=== PATIENT | female | born 1985 | race Native Hawaiian/Other Pacific Islander ===

== ENCOUNTER 2016-08-02 18:31 | Inpatient (IN) | payer OTHER ==
[~2016-08-02] VITALS: Ht 170.2 cm; Wt 98.0 kg
[2016-08-02] MEDS ORDERED: ACET50TA PO (18:37)
[2016-08-02 18:42] VITALS: BP 144/85
[2016-08-02] MEDS ORDERED: PENICILLIN G POTASSIUM IV 5 MU in D5W MINI-BAG PLUS 100 ML IV STA (19:05)
[2016-08-02] MEDS ORDERED: PENICILLIN G POTASSIUM 5 MU VIAL As Ordered ONE (19:10)
[2016-08-02] MEDS ORDERED: BETAMETHASONE SOLUSPAN 6MG/ML INJ 5ML (J0702) IM SCH (19:15)
[2016-08-02] MEDS: miSOPROStol 50 MCG 1/2 TAB (S0191) PO SCH ×2 (19:52→23:47)
[2016-08-02 19:56] LABS: MEAN CORPUSCULAR HEMOGLOBIN 25.5 pg (27.0-33.0); MEAN CORPUSCULAR HGB CONC 33.4 g/dl (32.0-36.5); MEAN CORPUSCULAR VOLUME 76.4 fl (80.0-96.0); RED CELL DISTRIBUTION WIDTH 14.6 % (11.5-14.5); WHITE BLOOD COUNT 8.3 K/mm3 (4.0-10.0)
[2016-08-02 20:17] LABS: ALT/SGPT 13 U/L (12-78); AST/SGOT 8 U/L (15-37); BILIRUBIN,TOTAL 0.3 MG/DL (0.2-1.0); CREATININE FOR GFR 0.58 MG/DL (0.55-1.02); GLOMERULAR FILTRATION RATE > 60.0 (>60); URIC ACID 3.1 MG/DL (2.6-6.0)
[2016-08-02 21:17] VITALS: BP 135/86
[2016-08-02] MEDS ORDERED: PENICILLIN G POTASSIUM IV 2.5 MU in D5W 100 ML IV SCH (23:45)
[2016-08-03] VITALS (8 sets, daily range): BP systolic 116–150; BP diastolic 67–95
[2016-08-03] MEDS ORDERED: FENTANYL 2MCG/ML ROPIVACAINE 0.2% NACL 250 ML CADD As Ordered ONE (01:17)
[2016-08-03] MEDS ORDERED: NALOXONE INJ 0.4 MG/1 ML VIAL (J2310) IV PRN (01:30)
[2016-08-03] MEDS ORDERED: LACTATED RINGER'S 1000 ML IV PRN (01:30)
[2016-08-03] MEDS ORDERED: diphenhydrAMINE INJ 50MG/ML VIAL (J1200) IV PRN (01:30)
[2016-08-03] MEDS ORDERED: ONDANSETRON 4MG/2ML VIAL (J2405) IV PRN (01:30)
[2016-08-03] MEDS ORDERED: ePHEDrine SULFATE 25 MG/5 ML(5MG/ML) SYRINGE IV PRN (01:30)
[2016-08-03] MEDS ORDERED: EPIDURAL COMMENT XX SCH (01:30)
[2016-08-03] MEDS ORDERED: EPIDURAL/PCA KEYS XX PRN (01:30)
[2016-08-03] MEDS ORDERED: FENTANYL/ROPIVACAINE/NACL CADD 250 ML EPIDURAL SCH (01:30)
[2016-08-03] MEDS ORDERED: REFRIGERATOR IV KEYS XX PRN (01:30)
[2016-08-03] MEDS ORDERED: OXYTOCIN 30 UNITS IN 0.9% NaCl 500ML IV BAG (J2590) As Ordered ONE (02:08)
[2016-08-03] MEDS ORDERED: OXYTOCIN DRIP 30 UNITS in APPROPRIATE DILUENT 1 EA IV SCH (02:28)
[2016-08-03] MEDS ORDERED: RHOGAM 300 MCG (1500 IU) INJ (J2790) IM SCH (02:30)
[2016-08-03] MEDS ORDERED: METHYLERGONOVINE MALEATE 0.2 MG TAB PO PRN (02:30)
[2016-08-03] MEDS ORDERED: DIBUCAINE 1% OINTMENT 30GM TOP PRN (02:30)
[2016-08-03] MEDS ORDERED: ANUSOL HC CREAM 30GM TOP PRN (02:30)
[2016-08-03] MEDS ORDERED: MEASLES,MUMPS,RUBELLA VACCINE INJ (MMR-II) (90707) SC SCH (02:30)
[2016-08-03] MEDS: IBUPROFEN 800 MG TAB PO PRN ×2 (03:59→15:06)
--- NOTE | 2016-08-03 07:57 | HPE ---
DATE OF ADMISSION: 08/02/2016 Antonieta is a 31-year-old 2, para 1-0-0-1 at 35-2/7 weeks gestation with an estimated date of confinement (EDC) of 09/04/2016 based on 7-week ultrasound. She presents to labor and delivery today with a complaint of spontaneous rupture of membranes at approximately 1400 hours. She reports the fluid as being clear. She does deny any regular contractions or vaginal bleeding. Her fetus has been active. care was initiated at a facility in [place] and transferred to [facility] and then ultimately to [facility] at 22 weeks gestation. Her care has been complicated by close interconceptual spacing OBSTETRICAL HISTORY: August 2015: At 40 weeks gestation, delivered an 8 pound 9 ounce female, spontaneous vaginal delivery. OB LABS: Blood type O+, antibody screen negative. Pap was normal. Rubella immune, VDRL nonreactive. Hepatitis B surface antigen negative, HIV negative. Hepatitis C antibody negative. Hemoglobin electrophoresis, normal adult hemoglobin. Gonorrhea and chlamydia negative. Second trimester serum screening for genetic abnormalities was negative. Gestational diabetic screening 110. Her GBS is unknown at this time. PAST MEDICAL HISTORY: Abnormal Pap. Vaccinated for varicella. SURGERIES: None. FAMILY HISTORY: Diabetes. SOCIAL HISTORY: The patient is to an active duty soldier. She is a nonsmoker. Denies alcohol and drug use. No history of sexually transmitted infections and denies a history of abuse - physical, sexual and emotional. ALLERGIES: No known drug allergies. CURRENT MEDICATIONS: Include vitamins and Tums as needed. OBJECTIVE: Temperature 98.6, pulse 113, respirations 18, blood pressure 144/85. heart rate is 150 with moderate variability, positive accelerations, no decelerations. There is no pattern of regular contractions. Abdomen is at gravid, cephalic presentation. Estimated weight 7-7-1/2 pounds. Bedside ultrasound did confirm cephalic presentation. Sterile speculum exam: She is grossly ruptured, positive Nitrazine, positive pooling, positive Valsalva and positive ferning. Sterile vaginal exam 1, thick, high station, posterior, moderate texture. ASSESSMENT: Intrauterine at 35-2/7 weeks gestation. heart rate category one. premature rupture of membranes. PLAN: Consult with Dr. Sourav Schaffer. Admit the patient to labor and delivery. Betamethasone for lung maturity. IV antibiotics for GBS prophylaxis at this time. GBS culture and sensitivity was obtained. Labs as ordered including pre-eclamptic profile and a spot urine. Clear liquid diet. Out of bed ad mihaela. Misoprostol 50 mcg by mouth every 4 hours for cervical ripening. The patient does desire an epidural when she is in active labor. I do plan on starting IV Pitocin with change in cervix more ripe presentation. I do anticipate labor and a spontaneous vaginal delivery.
[2016-08-03] MEDS: PRENATAL VITAMIN TAB PO SCH (09:00)
[2016-08-03] MEDS: ACETAMINOPHEN 500 MG TAB PO PRN (09:43)
[2016-08-03] MEDS: DOCUSATE SODIUM 100 MG CAP PO PRN (23:15)
[2016-08-04 05:41] VITALS: BP 143/99
[2016-08-04] MEDS: PRENATAL VITAMIN TAB PO SCH ×2 (08:32→08:34)
[2016-08-04] MEDS: IBUPROFEN 800 MG TAB PO PRN ×2 (08:33→18:34)
[2016-08-04] MEDS: ACETAMINOPHEN 500 MG TAB PO PRN ×2 (12:37→22:20)
[2016-08-04 18:34] VITALS: BP 152/81
[2016-08-04] MEDS: DOCUSATE SODIUM 100 MG CAP PO PRN (19:18)
[2016-08-05] MEDS: IBUPROFEN 800 MG TAB PO PRN ×2 (02:05→09:40)
[2016-08-05 05:49] VITALS: BP 135/82
[2016-08-05] MEDS ORDERED: COLA100C PO (08:23)
[2016-08-05] MEDS ORDERED: IBUP-1114 PO (08:23)
[2016-08-05] MEDS: ACETAMINOPHEN 500 MG TAB PO PRN (09:06)
[2016-08-05] MEDS: PRENATAL VITAMIN TAB PO SCH (09:06)
== END 2016-08-05 11:00 | disposition home or self-care (01) | DRG 775 ==
LOC: M LDO 18:31 → M LDI 18:56 → M OBS 08-03 03:26
PROVIDERS: ADMIT Advanced Practice Midwife; ATTEND Advanced Practice Midwife
PROC: 10E0XZZ Delivery of Products of Conception, External Approach (ICD-10-PCS; principal; 2016-08-02)
DX: O42.013 Preterm premature rupture of membranes, onset of labor within 24 hours of rupture, third trimester (principal); O60.14X0 Preterm labor third trimester with preterm delivery third trimester, not applicable or unspecified; Z37.0 Single live birth; Z3A.35 35 weeks gestation of pregnancy

== ENCOUNTER → 2016-12-23 | Outpatient (REF) | payer OTHER ==
[~2016-12-23] MED LIST: ACET50TA PO; COLA100C3 PO; IBUP-1114 PO
[2016-12-27 10:12] LABS: O+P EXAM Final report (.)
== END ==
LOC: M SFHCLACO 15:42
PROVIDERS: ATTEND Physician Assistant
DX: K58.2 Mixed irritable bowel syndrome (principal); R11.14 Bilious vomiting

== ENCOUNTER → 2017-01-07 | Outpatient (REF) | payer OTHER ==
[2017-01-07 15:56] LABS: MEAN CORPUSCULAR HEMOGLOBIN 27.1 pg (27.0-33.0); MEAN CORPUSCULAR HGB CONC 32.3 g/dl (32.0-36.5); MEAN CORPUSCULAR VOLUME 83.9 fl (80.0-96.0); RED CELL DISTRIBUTION WIDTH 13.1 % (11.5-14.5)
[2017-01-07 17:00] LABS: ANION GAP 6 MEQ/L (8-16); BLOOD UREA NITROGEN 9 MG/DL (7-18); CARBON DIOXIDE LEVEL 28 MEQ/L (21-32); CHLORIDE LEVEL 106 MEQ/L (98-107); CREATININE FOR GFR 0.61 MG/DL (0.55-1.02); GLOMERULAR FILTRATION RATE > 60.0 (>60); GLUCOSE, FASTING 80 MG/DL (70-105); POTASSIUM SERUM 4.3 MEQ/L (3.5-5.1); SODIUM LEVEL 140 MEQ/L (136-145)
[2017-01-07 17:01] LABS: ALBUMIN 3.7 GM/DL (3.2-5.2); ALBUMIN/GLOBULIN RATIO 1.12 (1.00-1.93); ALKALINE PHOSPHATASE 98 U/L (45-117); ALT/SGPT 23 U/L (12-78); AMYLASE 53 U/L (25-115); AST/SGOT 8 U/L (15-37); BILIRUBIN,TOTAL 0.3 MG/DL (0.2-1.0); CHOLESTEROL LEVEL 201 MG/DL (<200); TRIGLYCERIDES LEVEL 185 MG/DL (<150)
== END ==
LOC: M SFHCSACK 09:43
PROVIDERS: ATTEND Physician Assistant
DX: Z00.00 Encounter for general adult medical examination without abnormal findings (principal); R11.14 Bilious vomiting; K58.2 Mixed irritable bowel syndrome; F41.9 Anxiety disorder, unspecified